=== PATIENT | female | born 1980 | race Hispanic/Latino ===

== ENCOUNTER 2017-06-15 18:57 | Emergency (ER) | payer OTHER ==
[~2017-06-15] VITALS: Ht 165.1 cm; Wt 86.4 kg
[~2017-06-15 18:57] MED LIST: COL100L PO; IBUP-1152 PO; NOMED; PER5 PO; PREN1TAB47 PO
[2017-06-15 19:07] VITALS: BP 132/80; PULSE 90; RESP 16; O2SAT 100
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
--- NOTE | 2017-06-15 21:09 | DRSVH ---
PROCEDURE: X-RAY LEFT ELBOW COMPLETE, MINIMUM THREE VIEWS ([id number]) INDICATIONS: fall, pain TECHNIQUE: 3 views of the elbow were acquired. COMPARISON: None. FINDINGS: Bones: There is a minimally displaced radial head fracture. Soft tissues: There is elevation of the anterior and posterior fat pads consistent with joint effusio n. IMPRESSION: Minimally displaced radial head fracture and elbow joint effusion. Dictated by: Sunni Escobedo M.D. on 06/15/2017 at 21:07 Approved by: Sunni Escobedo M.D. on 06/15/2017 at 21:08
== END 2017-06-15 22:02 | disposition home or self-care (01) ==
LOC: SED 18:57
DX: S52.122A Displaced fracture of head of left radius, initial encounter for closed fracture (principal); V18.0XXA Pedal cycle driver injured in noncollision transport accident in nontraffic accident, initial encounter; Y93.9 Activity, unspecified; Y92.9 Unspecified place or not applicable; Y99.8 Other external cause status